=== PATIENT | male | born 1965 | race Caucasian/White ===

== ENCOUNTER 2022-04-04 11:06 | Emergency (ER) | payer OTHER, SELFPAY ==
[2022-04-04 11:15] VITALS: BP 175/89; PULSE 97; RESP 18; TEMP 37.1; O2SAT 100
--- NOTE | 2022-04-04 11:26 | ED.SKABFB ---
HPI - Skin/Abscess/Foreign Bdy General Chief complaint: Skin/Abscess/Foreign Body Stated complaint: Bump On Back Time Seen by Provider: 04/04/22 11:26 Source: patient and RN notes reviewed Mode of arrival: ambulatory Limitations: no limitations History of Present Illness HPI narrative: 56-year-old male presents to the [facility] with a cyst to his backx2. 1 upper mid back, second left scapular area. Left scapular area already draining thick green purulent drainage. Patient reports during summer he gets these on a regular basis for many years. Has always gone to urgent care to have them taken care of. Patient has not followed up with dermatology nor primary care provider in regards to these. Patient states the one in the middle upper back has always been there and is though is a little inflamed, bumped it a couple of days ago and has become red hot and increased inflammation. Related Data Allergies Allergy/AdvReac Type Severity Reaction Status Date / Time No Known Drug Allergies Allergy Mild Other Verified 04/04/22 11:10 Review of Systems Review of Systems: All systems reviewed & are unremarkable except as noted in HPI and below Constitutional: Constitutional: Reports no additional constitutional complaints, Denies chills and Denies fever(s) Eyes: Eyes: Reports no additional eye complaints ENT: Reports system reviewed and no additional complaints, except as documented Cardiovascular: Cardiovascular: Reports no additional cardiovascular complaints Respiratory: Respiratory: Reports no additional respiratory complaints Gastrointestinal: Gastrointestinal: Reports no additional gastrointestinal complaints Musculoskeletal: Musculoskeletal: Reports no additional musculoskeletal complaints Integumentary/Breasts: Skin/Breast: Reports as per HPI and Reports erythema Neurologic: Reports system reviewed and no additional complaints, except as documented Psychiatric: Psychiatric: Reports no additional psychiatric complaints Allergic/Immunologic: Allergic/Immunologic: Reports no additional allergic/immunologic complaints [facility], [facility] Past Medical History Medical History (Updated 04/05/22 @ 09:17 by Anne Marie Norton APRN) Patient denies medical problems Surgical History Surgical History (Updated 04/04/22 @ 12:18 by Anne Marie Norton APRN) No history of previous surgery Social History Social History (Updated 04/04/22 @ 12:18 by Anne Marie Norton APRN) Gender identity (if verbalized by the patient): Male Comments At the time of my signature, I reviewed and agree with the nursing past medical, surgical, social, and family history. There is no relevant family history pertinent to the patient complaint. Exam Const: General: healthy appearing, no acute distress and alert Nutritional Appearance: well nourished Orientation/consciousness: patient oriented x3 Limitations: no limitations HENMT: Head: normal to inspection Ears: external ears normal Eyes: General: appearance normal, both eyes and all related structures Pupils: Equal, round and reactive pupils present Neck: Neck: normal visual inspection, no lymphadenopathy and no meningeal signs Chest: Chest palpation & inspection: normal inspection of the chest Resp: Effort & Inspection: normal respiratory effort and no use of accessory muscles Auscultation: clear to auscultation bilaterally, no crackles, no rales, no rhonchi and no wheezes Cardio: Rate: regular rate Rhythm: regular rhythm GI: GI Palp: Yes Soft to palpation and No Tenderness to palpation present (GI) Back/Spine/Pelvis: Cervical Spine: normal cervical lordosis Thoracic/Lumbar Spine: thoracic and lumbar spine normal to inspection Skin: General skin exam: normal color Rashes: no rashes Full body images: 1. 1 cm open draining area. Yellow to green purulent 2. 3-1/2 x 3-1/2 raised erythema, warm, fluctuant area Neuro: General: patient oriented x3, moves all extremities, no meningeal signs and no
[2022-04-04] MEDS: LIDOCAINE HCL 1% LOCAL INJ 2 ML AMPUL 6 ML INFILTRATE (12:05)
== END 2022-04-04 12:38 | disposition home or self-care (01) ==
PROVIDERS: Emergency Provider Nurse Practitioner
DX: L02.212 Cutaneous abscess of back [any part, except buttock and flank] (principal)
CPT/HCPCS: 10060; 87070; 87075; 87076; 87205; 99213; G0463